=== PATIENT | male | born 1960 | race Caucasian/White ===

== ENCOUNTER 2021-01-28 17:20 | Emergency (ER) | payer BC ==
[~2021-01-28] VITALS: Ht 180.3 cm; Wt 81.6 kg
--- NOTE | 2021-01-28 17:40 | NUR ---
Receved pt 60 yrs male came by johan gaviria on lt lower leg V SHAP BIG DANA FELL in his leg dressing intact no active bleeding seen by DR. CHARMAINE JIMENEZ TO INSERT IV ON ARM X- RAY DONE ON LT LEG
[2021-01-28] MEDS ORDERED: ONDANSETRON 4 MG/2 ML VIAL IV ONE (17:45)
[2021-01-28] MEDS ORDERED: HYDROMORPHONE 1 MG/1 ML DISP.SYRIN IV ONE ×2 (17:45→20:30)
[2021-01-28] MEDS ORDERED: ONDANSETRON 4 MG/2 ML VIAL ONE (17:59)
[2021-01-28] MEDS ORDERED: HYDROMORPHONE 1 MG/1 ML DISP.SYRIN ONE ×2 (18:01→21:05)
[2021-01-28] MEDS ORDERED: TAMS-3 PO (18:12)
--- NOTE | 2021-01-28 18:30 | NUR ---
DILUDID 0.5MG IV AND ZOFRAN 4MG IVP WAS GIVEN BY DAISY TOBAR
[2021-01-28] MEDS ORDERED: LIDOCAINE HCL 1% 20 ML VIAL IJ ONE (18:45)
[2021-01-28] MEDS ORDERED: TDAP DIPH,PERTUSS,TET VAC/PF 0.5 ML DISP.SYRIN IM ONE ×3 (18:45→20:36)
[2021-01-28 19:04] LABS: CREATININE 0.9 mg/dL (0.6-1.3); POTASSIUM 4.1 mmol/L (3.5-5.1)
[2021-01-28] MEDS ORDERED: LIDOCAINE HCL 1% 20 ML VIAL ONE (19:12)
[2021-01-28 19:15] LABS: BILIRUBIN,DIRECT 0.1 mg/dL (0.0-0.2); BILIRUBIN,TOTAL 0.3 mg/dL (0.2-1.0)
[2021-01-28 19:16] LABS: TOTAL PROTEIN, SERUM 7.3 g/dL (6.4-8.2)
--- NOTE | 2021-01-28 19:30 | NUR ---
HAND OFF TO PAU TOBAR AND GAUTAM TOBAR
[2021-01-28] MEDS ORDERED: NEOMY/BACITRA/POLYMYXIN B OINT UD PACKET TP ONE ×3 (19:37→20:36)
[2021-01-28] MEDS ORDERED: CEFAZOLIN 1 G in IV DEXTROSE 5% 50 ML IV ONE (19:45)
--- NOTE | 2021-01-28 20:16 | NUR ---
Per Dr. Pratt, no need for blood test.
[2021-01-28] MEDS ORDERED: OXYC-133 PO (20:33)
[2021-01-28] MEDS ORDERED: CEPH500C2 PO (20:33)
[2021-01-28] MEDS ORDERED: CEFAZOLIN 1 G VIAL ONE (20:36)
[2021-01-28 21:37] VITALS: BP 135/76
== END 2021-01-28 21:22 | disposition home or self-care (01) ==
LOC: ER 17:22
DX: S87.82XA Crushing injury of left lower leg, initial encounter (principal); S81.812A Laceration without foreign body, left lower leg, initial encounter; W20.8XXA Other cause of strike by thrown, projected or falling object, initial encounter; Y93.89 Activity, other specified; Y92.89 Other specified places as the place of occurrence of the external cause; K44.9 Diaphragmatic hernia without obstruction or gangrene; M17.12 Unilateral primary osteoarthritis, left knee; N40.0 Benign prostatic hyperplasia without lower urinary tract symptoms; Z79.899 Other long term (current) drug therapy; I51.7 Cardiomegaly; R91.8 Other nonspecific abnormal finding of lung field
CPT/HCPCS: 12005; 36415; 71045; 73590; 80048; 80076; 83880; 84484; 90471; 90715; 96365; 96375; 96376; 99285; J0690; J1170 ×2; J2405; J3490; J7060; 70030-TC; 85025; 85730; 93005; A4217; A4663; J7030

== ENCOUNTER 2021-02-14 19:30 | Emergency (ER) | payer BC ==
[~2021-02-14] VITALS: Ht 180.3 cm; Wt 81.6 kg
[~2021-02-14 19:30] MED LIST: CEPH500C2 PO; OXYC-133 PO; TAMS-3 PO
--- NOTE | 2021-02-14 19:38 | NUR ---
Pt here for wound eval on left lower extremity, treated here x [address] Diaz on bedside for MSE.
--- NOTE | 2021-02-14 19:56 | NUR ---
Patient discharged to home in stable condition. Written and verbal after care instructions given. Patient verbalizes understanding of instructions. Stressed follow up or return to ER for worsening s/s. Patient ambulated from the ER with steady gait. All belongings with patient.
[2021-02-14 19:57] VITALS: BP 123/72
== END 2021-02-14 19:58 | disposition home or self-care (01) ==
LOC: ER 19:37
DX: S81.812D Laceration without foreign body, left lower leg, subsequent encounter (principal); W45.8XXD Other foreign body or object entering through skin, subsequent encounter; F17.210 Nicotine dependence, cigarettes, uncomplicated; G89.29 Other chronic pain; M25.562 Pain in left knee; M25.561 Pain in right knee; N40.0 Benign prostatic hyperplasia without lower urinary tract symptoms; Z79.899 Other long term (current) drug therapy
CPT/HCPCS: A4663

== ENCOUNTER 2025-02-16 16:05 | Inpatient (IN) | payer OTHER, MEDICAID ==
[~2025-02-16] VITALS: Ht 177.8 cm; Wt 73.7 kg
[2025-02-16 16:52] LABS: BASOPHILS % (AUTO) 0.6 % (0.0-2.0); EOSINOPHILS # (AUTO) 0.2 K/uL (0.0-0.7); EOSINOPHILS % (AUTO) 2.1 % (0.0-7.0); HEMOGLOBIN 10.3 g/dL (12.5-16.3); LYMPHOCYTES # (AUTO) 1.1 K/uL (0.8-4.8); MEAN CORPUSCULAR HEMOGLOBIN 24.8 uug (23.8-33.4); MEAN CORPUSCULAR HGB CONC 32 g/dL (32.5-36.3); MEAN CORPUSCULAR VOLUME 76.9 fL (73.0-96.2); MONOCYTES # (AUTO) 0.8 K/uL (0.1-1.30); MONOCYTES % (AUTO) 10.9 % (0.0-11.0); NEUTROPHILS # (AUTO) 5.5 K/uL (1.8-8.9); NEUTROPHILS % (AUTO) 71.4 % (38.5-71.5); PLATELET COUNT (AUTO) 309 K/uL (152-348); RED BLOOD CELL COUNT(AUTO) 4.16 MIL/uL (4.06-5.63); RED CELL DISTRIBUTION WIDTH 16.5 % (12.1-16.2); WHITE BLOOD COUNT (AUTO) 7.6 K/uL (3.6-10.2)
[2025-02-16 16:55] LABS: DIFFERENTIAL COMMENT 1
[2025-02-16 17:00] LABS: CALCIUM 8.4 mg/dL (8.5-10.1); CREATININE 0.7 mg/dL (0.6-1.3); POTASSIUM 4.2 mmol/L (3.5-5.1)
[2025-02-16 17:06] LABS: ALBUMIN 2.9 g/dL (3.4-5.0); BILIRUBIN,DIRECT 0.1 mg/dL (0.0-0.2); BILIRUBIN,TOTAL 0.2 mg/dL (0.2-1.0); TOTAL PROTEIN, SERUM 7.1 g/dL (6.4-8.2)
[2025-02-16] MEDS: IV NS 1000 ML 1,000 ML IV PRN (17:07)
[2025-02-16 17:18] LABS: *BILIRUBIN,URIN NEGATIVE (NEGATIVE); *BLOOD, URINE 1+ (NEGATIVE); *CLARITY,URINE CLOUDY (CLEAR); *COLOR,URINE YELLOW (YELLOW); *KETONES,URINE NEGATIVE (NEGATIVE); *PROTEIN,URINE 2+ (NEGATIVE); *UROBILINOGEN,URINE 0.2 E.U./dl (NORMAL); LEUKOCYTE ESTERASE ,URINE 2+ (NEGATIVE); NITRITE, URINE NEGATIVE (NEGATIVE); UGLUCOSE NEGATIVE (NEGATIVE)
[2025-02-16] MEDS ORDERED: CEFAZOLIN 1 G VIAL ONE (17:23)
[2025-02-16] MEDS: diphenhydrAMINE 50 MG/1 ML VIAL IV ONE (17:34)
[2025-02-16] MEDS: METOCLOPRAMIDE HCL 10 MG/2 ML VIAL IV ONE (17:35)
[2025-02-16] MEDS: CEFAZOLIN 2 G in IV DEXTROSE 5% 100 ML IV ONE (17:35)
[2025-02-16] MEDS: MORPHINE SULFATE 4 MG/1 ML DISP.SYRIN IV ONE (17:35)
[2025-02-16 18:31] LABS: *AMPHETAMINE, URINE POSITIVE (NEGATIVE); *BARBITURATE, URINE NEGATIVE (NEGATIVE); *BENZODIAZEPINE, URINE NEGATIVE (NEGATIVE); *CANNABINOID, URINE NEGATIVE (NEGATIVE); *COCCAINE, URINE NEGATIVE (NEGATIVE); *OPIATE, URINE NEGATIVE (NEGATIVE); *PHENCYCLIDINE SCREEN,URINE NEGATIVE (NEGATIVE); FENTANYL, URINE POSITIVE (NEGATIVE)
[2025-02-16 18:32] LABS: BACTERIA,URINE FEW /HPF (NONE SEEN); SQUAMOUS EPITHELIAL CELL,UR FEW /HPF (NONE SEEN); WBC,URINE 80-100 /HPF (0-3)
[2025-02-16] MEDS ORDERED: REMEDY ESSENTIAL ZINC PASTE 113 GM TP PRN (21:00)
[2025-02-16] MEDS ORDERED: ACETAMINOPHEN 325 MG TABLET PO PRN (21:00)
[2025-02-16] MEDS ORDERED: ONDANSETRON 4 MG/2 ML VIAL IV PRN (21:00)
[2025-02-16] MEDS ORDERED: MAGNESIUM HYDROXIDE 30 ML LIQUID UDC PO PRN (21:00)
[2025-02-16] MEDS ORDERED: ENOXAPARIN SODIUM 40 MG/0.4 ML DISP.SYRIN SQ ONE (21:46)
[2025-02-16] MEDS ORDERED: CEFTRIAXONE /D5W 50ML IVPB **ER PYXIS IV ONE (21:46)
[2025-02-16] MEDS: CEFTRIAXONE 1 G in IV DEXTROSE 5% 50 ML IV SCH (21:47)
[2025-02-16] MEDS: ENOXAPARIN SODIUM 40 MG/0.4 ML DISP.SYRIN SQ SCH (21:58)
[2025-02-16 23:00] VITALS: BP 127/78; TEMP 98.2; O2SAT 100
[2025-02-16] MEDS ORDERED: VANCOMYCIN IV 200 ML ONE (23:12)
[2025-02-16] MEDS: VANCOMYCIN IV 1,000 MG in IV DEXTROSE 5% 250 ML IV ONE (23:26)
[2025-02-17] MEDS: HYDROCODONE/APAP 10-325 MG TABLET PO PRN (04:57)
[2025-02-17 06:00] VITALS: BP 155/81; TEMP 98.4; O2SAT 96
[2025-02-17] MEDS: IV NS 1000 ML 1,000 ML IV PRN (06:42)
[2025-02-17] MEDS: MORPHINE SULFATE 2 MG/1 ML DISP.SYRIN IV PRN (06:43)
[2025-02-17 11:45] VITALS: BP 160/80; TEMP 98.1; O2SAT 98
[2025-02-17] MEDS: VANCOMYCIN IV 1,000 MG in IV DEXTROSE 5% 250 ML IV SCH (13:18)
[2025-02-17 15:46] VITALS: BP 124/76; TEMP 97.4; O2SAT 97
[2025-02-17 19:20] VITALS: BP 162/97; TEMP 98.4; O2SAT 97
[2025-02-17] MEDS ORDERED: CEFTRIAXONE /D5W 50ML IVPB **ER PYXIS IV ONE (20:55)
[2025-02-17] MEDS: LORAZEPAM 0.5 MG TABLET PO PRN (23:23)
[2025-02-18 06:25] VITALS: BP 152/77; TEMP 98.8; O2SAT 100
[2025-02-18 12:08] VITALS: BP 148/81; TEMP 98.7; O2SAT 97
[2025-02-18] MEDS: VANCOMYCIN IV 1,250 MG in IV DEXTROSE 5% 250 ML IV SCH (14:21)
[2025-02-18 16:00] VITALS: BP 149/82; TEMP 97.3; O2SAT 97
[2025-02-18] MEDS: ENSURE ENLIVE (VAN) 240 ML LIQUID PO SCH (16:27)
[2025-02-18 20:30] VITALS: BP 154/99; O2SAT 97
[2025-02-19 11:45] VITALS: BP 134/76; TEMP 98; O2SAT 98
[2025-02-19 13:34] LABS: CALCIUM 8.5 mg/dL (8.5-10.1); CREATININE 0.8 mg/dL (0.6-1.3); POTASSIUM 3.1 mmol/L (3.5-5.1)
[2025-02-19 15:59] VITALS: BP 140/86; TEMP 97.9; O2SAT 99
[2025-02-19] MEDS: POTASSIUM CHLORIDE 20 MEQ TAB.PRT.SR PO ONE (17:19)
[2025-02-19 21:51] VITALS: BP 134/72; TEMP 98.1; O2SAT 98
[2025-02-20 04:37] VITALS: BP 140/84; TEMP 97.9; O2SAT 100
[2025-02-20] MEDS: VANCOMYCIN IV 1,250 MG in IV DEXTROSE 5% 250 ML IV SCH (08:29)
[2025-02-20 10:43] VITALS: BP 155/77; TEMP 97.8; O2SAT 99
[2025-02-20] MEDS ORDERED: DOXY-326 PO (11:02)
== END 2025-02-20 12:10 | disposition home or self-care (01) | DRG 603 ==
LOC: ER 16:05 → MEDSURG3 22:34
PROVIDERS: ADMIT Internal Medicine; ATTEND Internal Medicine
PROC: 05HB33Z Insertion of Infusion Device into Right Basilic Vein, Percutaneous Approach (ICD-10-PCS; principal; 2025-02-18)
DX: L03.116 Cellulitis of left lower limb (principal); E87.1 Hypo-osmolality and hyponatremia; Z59.02 Unsheltered homelessness; N39.0 Urinary tract infection, site not specified; F17.210 Nicotine dependence, cigarettes, uncomplicated; F11.10 Opioid abuse, uncomplicated; D63.8 Anemia in other chronic diseases classified elsewhere; E87.6 Hypokalemia
CPT/HCPCS: 36415; 83605; 85025; 86140; 87040; 87086; G0378; J0690; J0696; J1200; J1650; J2270; J2765; J3370; J7040; J7050

== ENCOUNTER 2025-05-24 18:59 | Emergency (ER) | payer OTHER, MEDICAID ==
[~2025-05-24] VITALS: Ht 177.8 cm; Wt 74.8 kg
[~2025-05-24 18:59] MED LIST changes: -CEPH500C2 PO; +DOXY-326 PO; -OXYC-133 PO; -TAMS-3 PO
[2025-05-24 19:05] VITALS: BP 124/44; O2SAT 99
[2025-05-24] MEDS ORDERED: KETOROLAC TROMETHAMINE 30 MG INJ ONE (19:51)
[2025-05-24] MEDS: KETOROLAC TROMETHAMINE 30 MG INJ IVP ONE (20:04)
[2025-05-24] MEDS: HYDROCODONE/APAP 5-325MG TABLET PO ONE (20:08)
== END 2025-05-24 20:19 | disposition left against medical advice (07) ==
LOC: ER 19:05
DX: G89.4 Chronic pain syndrome (principal); M54.50 Low back pain, unspecified; F17.210 Nicotine dependence, cigarettes, uncomplicated; R07.0 Pain in throat; Z88.7 Allergy status to serum and vaccine
CPT/HCPCS: A4606; A4663; J1885